=== PATIENT | male | born 1995 | race Caucasian/White ===

== ENCOUNTER 2018-03-29 13:35 | Emergency (ER) | payer OTHER ==
[2016-12-01 11:03] VITALS: Wt 99.8 kg
[~2018-03-29 13:35] MED LIST: ABILIF5PT PO; ACE3 PO; ARI2 PO; CIT20 PO; CLON1 PO; FLU20 PO; HYDR-3083 PO; LAMO200T46 PO; LAMO25TA64 PO; LOR5 PO; LOR5/325 PO; MEDIDATE PO; METH18TA12 PO; MINO100T8 PO; MINO50TA7 PO; MULT-1335 PO; MULT-859 PO; NAP500 PO; NIC10R INH; NO MEDS; NO ROUTINE MEDS; OMEG-27 PO; ONDA4TAB PO; OXYC-865 PO; PANT40TA65 PO; PROAIRPT IH; TRA50 PO; TRAM-627 PO; [UNRECOGNIZED DRUG - CODE] PO
--- NOTE | 2018-03-29 13:49 | ER Report ---
History and Physical Time Seen By MD: 13:49 HPI/ROS CHIEF COMPLAINT: Anxiety HISTORY OF PRESENT ILLNESS: This is a 22-year-old male who presents to the emergency department for depression and anxiety. Patient has a history of bipolar, has been off of his meds for roughly 1-2 years. Patient states that he'll be fine for a couple months and then have severe depression and cry and then have manic episodes. He was encouraged to come to the ER by his family for evaluation. Patient is not suicidal or homicidal. Patient states that he is unable to afford his medications or see her therapist however Saturday is hopeful that he will get a promotion at work then he'll be able to afford some medications. Patient is looking for resources at this time. No fevers or chills. No nausea or vomiting. No other complaints. REVIEW OF SYSTEMS: Constitutional: No fever, no chills. Eyes: No discharge. ENT: No sore throat. Cardiovascular: No chest pain, no palpitations. Respiratory: No cough, no shortness of breath. Gastrointestinal: No abdominal pain, no vomiting. Genitourinary: No hematuria. Musculoskeletal: No back pain. Skin: No rashes. Neurological: No headache. Psych: As above. Allergies: Coded Allergies: Haloperidol Lactate (Verified Allergy, Unknown, 03/29/18) Home Meds Discontinued Reported Medications Nicotine (NICOTROL) 10 Mg/Inh Ctr, 10 MG INH PRN for NICOTINE REPLACEMENT Also Nicotrol cartridge for nicotrol inhaler 12/05/16 Multivitamin With Minerals (MULTIPLE VITAMIN) 1 Each Tablet, 1 EACH PO QDAY, TAB Buy over the counter 12/05/16 Lamotrigine (LAMICTAL) 25 Mg Tablet, 25 MG PO QHS, #60 Take one tab at bedtime for 14days, then one tab am and bedtime for 14 days. Continue to take 2 times a day until seen by out patient provider. 12/05/16 Aripiprazole (ABILIFY) 2 Mg Tablet, 2 MG PO QHS, #30 TAB 1 Refill 12/05/16 Past Medical/Surgical History The patient has a past medical and surgical history of concussion 2, headaches, sports-induced asthma, left thumb fracture, does use marijuana regularly, occasionally uses alcohol now did drink large quantities of alcohol prior to 2 months ago, history of suicide attempts by overdose, depression, bipolar, tonsillectomy. Reviewed Nurses Notes: Yes Hx Smoking: Yes Smoking Status: Heavy Tobacco Smoker Exposure to Second Hand Smoke?: Yes Hx Substance Use Disorder: Yes (pot) Hx Alcohol Use: Yes Constitutional Vital Sign - Last 24 Hours 03/29/18 03/29/18 03/29/18 03/29/18 13:54 13:55 14:00 14:05 Temp 98.0 Pulse 84 88 Resp 16 B/P (MAP) 132/92 (105) 132/92 137/91 (106) Pulse Ox 96 94 O2 Delivery Room Air 03/29/18 03/29/18 03/29/18 03/29/18 14:30 14:35 14:40 15:00 Pulse 76 83 B/P (MAP) 122/79 (93) 118/75 (89) Pulse Ox 95 96 Physical Exam General Appearance: The patient is alert, has no immediate need for airway protection and no signs of toxicity. Eyes: Pupils equal and round no pallor or injection. ENT, Mouth: Mucous membranes are moist. Respiratory: There are no retractions, lungs are clear to auscultation. Cardiovascular: Regular rate and rhythm. Gastrointestinal: Abdomen is soft and non tender, no masses, bowel sounds normal. Neurological: Alert and oriented 4. Moving all extremities. Following all commands. No focal neuro deficits. Skin: Warm and dry, no rashes. Musculoskeletal: Neck is supple non tender. Extremities are nontender, nonswollen and have full range of motion. Psych: Patient making good eye contact, forthcoming with his concerns, no suicidal thoughts, he does have depressive thoughts and tearful at times. William broussard is very concerned about cost of the medications. He is however looking forward to potential job promotion on Saturday. DIFFERENTIAL DIAGNOSIS: After history and physical exam differential diagnosis was considered for depression, bipolar, benjamin. Medical Decision Making ED Course/Re-evaluation ED Course The patient was admitted to a room. A history and physical were obtained. Differential diagnoses were considered. After speaking with patient, he did have one at the [employer] come and speak with the patient's we will provide him with resources locally, patient is also speaking with his parents and grandmother about the cost of the medications, the, according to the patient to seem willing to help with the cost. The patient is not suicidal or homicidal there is no need for detainment, patient does not want to the behavioral health unit. We did talk extensively about returning to the ER for any other concerns or worsening symptoms specifically suicidal or homicidal thoughts, patient expressed understanding and was discharged home. Decision to Disposition Date: Mar 29, 2018 Decision to Disposition Time: 15:04 Depart Departure Latest Vital Signs Vital Signs Date Time Temp Pulse Resp B/P (MAP) Pulse Ox O2 Delivery O2 Flow Rate FiO2 03/29/18 15:00 118/75 (89) 03/29/18 14:40 83 96 03/29/18 13:55 98.0 16 Room Air Impression: Primary Impression: Bipolar disorder, unspecified Condition: Improved Disposition: HOME OR SELF-CARE Referrals: MASON TATUM DO (PCP) Patient Instructions: Bipolar Disorder (ED) Additional Instructions: Please follow up with psychiatrist or counselor, using the information provided, as soon as possible. Please practice some of the techniques at the [employer] technician discussed with you. Drink plenty of water. Get plenty of rest. Return to the emergency department for any other concerns or worsening symptoms. Problem Qualifiers Primary Impression: Bipolar disorder, unspecified Active/Remission status: currently active Current bipolar episode type: mixed Current episode severity: mild Qualified Codes: F31.61 - Bipolar disorder, current episode mixed, mild JEREMY REYNOLDS [employer]IST-[employer] Mar 29, 2018 13:49
[2018-03-29 15:00] VITALS: BP 118/75
== END 2018-03-29 15:13 | disposition home or self-care (01) ==
LOC: ER 13:57
DX: F31.61 Bipolar disorder, current episode mixed, mild (principal)
CPT/HCPCS: 99283